=== PATIENT | female | born 1960 | race Caucasian/White ===

== ENCOUNTER 2017-03-06 11:46 | Emergency (ER) | payer BC ==
[~2017-03-06] VITALS: Ht 165.1 cm; Wt 67.2 kg
[2017-03-06 12:21] LABS: HEMATOCRIT 41.8 % (36.0-46.0); MCH 30.9 PG (29.0-34.0); MCHC 34.4 G/DL (30.0-36.0); MCV 89.7 FL (83-99); MEAN PLAT.VOLUME 9.4 uM^3 (9.5-12.4); PLATELET COUNT 269 K/uL (156-360); RBC DIS.WIDTH-CV 12.7 % (11.8-14.6); RED BLOOD COUNT 4.66 M/uL (3.80-5.20); WHITE BLOOD COUNT 13.1 K/uL (4.1-10.2)
[2017-03-06 12:35] LABS: CHLORIDE 101 mEq/L (99-109); POTASSIUM 3.4 mEq/L (3.7-5.4); SODIUM 139 mEq/L (136-147)
[2017-03-06 12:37] LABS: GLUCOSE 106 mg/dL (70-99)
[2017-03-06 12:39] LABS: ANION GAP 11 MEQ/L (2-14); TOTAL BILIRUBIN 0.9 mg/dL (0.0-1.0)
[2017-03-06 12:41] LABS: ALKALINE PHOSPHATASE 64 IU/L (3-129)
[2017-03-06 12:42] LABS: UREA NITROGEN (BUN) 14 mg/dL (9-23)
[2017-03-06 12:43] LABS: GFR ESTIMATE (CALCULATED) > 59 mL/min/
[2017-03-06 12:52] LABS: QUANTITATIVE HCG 4.9 MIU/ML
[2017-03-06 12:53] LABS: LIPASE 13 U/L (1.0-51.0)
[2017-03-06 13:12] LABS: ADD MIUA? YES; BILIRUBIN NEGATIVE; BLOOD NEGATIVE; COLOR YELLOW ((YELLOW)); GLUCOSE (STRIP) NEGATIVE; KETONES NEGATIVE; LEUKOCYTES TRACE; NITRITE NEGATIVE; PROTEIN (STRIP) 30; SPECIFIC GRAVITY 1.016 (1.000-1.030); UROBILINOGEN 0.2 MG/DL (0.2-1.0)
[2017-03-06 13:29] LABS: BACTERIA RARE /HPF; CALCIUM OXALATE CRYSTALS 1+ /HPF; EPITHELIAL CELLS 1+ /HPF; MUCUS TRACE /LPF; RED BLOOD CELLS 0-5 /HPF (0-5); UCUL ADDED? NO; WHITE BLOOD CELLS 0-5 /HPF (0-5)
[2017-03-06] MEDS ORDERED: TYLENOL WITH C1 EACH PO (14:55)
[2017-03-06] MEDS ORDERED: PROTONIX40 MG PO (14:55)
[2017-03-06 15:28] VITALS: BP 148/89
== END 2017-03-06 15:29 | disposition home or self-care (01) ==
LOC: EME 11:46
DX: R10.13 Epigastric pain (principal); Z88.0 Allergy status to penicillin; Z88.2 Allergy status to sulfonamides
CPT/HCPCS: 74176; 80053; 81003; 83690; 84702; 85027; 93005; 99281; 99285; J7030